=== PATIENT | female | born 1950 | race Caucasian/White ===

== ENCOUNTER 2017-07-05 10:00 | Outpatient (CLI) | payer MEDICARE, OTHER | END 2017-07-05 10:02 | LOC: RT 10:00 | PROVIDERS: ATTEND Nurse Practitioner Family | DX: I49.9 Cardiac arrhythmia, unspecified (principal); R07.89 Other chest pain | CPT/HCPCS: 93270 ==

== ENCOUNTER 2018-06-08 23:25 | Emergency (ER) | payer MEDICARE, OTHER ==
--- NOTE | 2018-06-08 23:53 | ED Physician Documentation ---
General Adult - HISTORIAN Historian: patient - HPI Stated Complaint: high blood pressure Chief Complaint: General Adult Additional Information: Took her BP at home today and it was elevated. So she kept taking it over and over. One reading was 190/100, so she took an extra dose of BP medication and came to ER. Typically takes 30 mg Lisinopril daily; took an extra 5 mg this evening. Denies CP, PAGAN, vision changes. Held breath and elevated shoulders while BP taken in ER. Radha Marquez pt and hasn't seen her in more than a year. Denies other health problems. - ROS CONST: no problems - PAST HX Past History: hypertension - SOCIAL HX Smoking History: quit greater than 1 year, cigarettes - FAMILY HX Family History: Yes (cancer) - REVIEWED ASSESSMENTS Nursing Assessment Reviewed: Yes Vitals Reviewed: Yes Progress - Progress Progress: BP consistently in decent ranges in ER, 163/73, 155/63. No other symptoms. Explained that lowering her BP too much was also risky. ED Results Lab/Radiology - Orders Orders: ED Orders Category Date Time Status UA [URINALYSIS] Routine Lab 06/08/18 Ordered General Adult Physical Exam - PHYSICAL EXAM GENERAL APPEARANCE: mild distress (anxious) EENT: eye inspection normal, ENT inspection normal, pharynx normal, no signs of dehydration NECK: normal inspection, supple RESPIRATORY: no resp distress, breath sounds normal CVS: reg rate & rhythm, heart sounds normal, no murmur BACK: normal inspection, no CVA tenderness, other (no vertebral tenderness) SKIN: warm/dry, normal color EXTREMITIES: normal range of motion (gait and stance), no evidence of injury, no edema NEURO: CN's nml as tested, motor nml, sensation nml, cognition normal Discharge Clincal Impression: Hypertension Qualifiers: Hypertension type: unspecified Qualified Code(s): I10 - Essential (primary) hypertension Referrals: Radha Marquez MD [Primary Care Provider] - 2 Days Additional Instructions: Return to the ER if you have chest pain, shortness of breath, palpitations. Follow up with Dr. Marquez soon. Condition: Good Disposition: 01 HOME, SELF-CARE Decision to Admit: NO Decision Time: 00:10
[2018-06-09 00:20] VITALS: BP 166/66
[2018-06-09 08:23] LABS: APPEARANCE,URINE CLEAR (CLEAR); COLOR,URINE YELLOW (YELLOW); OCCULT BLOOD,URINE TRACE-INTACT (NEGATIVE); UROBILINOGEN URINE 0.2 Eu (0.2-1.0)
== END 2018-06-09 00:20 | disposition home or self-care (01) ==
LOC: ED 23:25
DX: I10 Essential (primary) hypertension (principal)
CPT/HCPCS: 81002; 99283

== ENCOUNTER 2018-10-26 07:54 | Outpatient (CLI) | payer MEDICARE, OTHER ==
--- NOTE | 2018-10-26 23:55 | Diagnostic Imaging Report ---
ANAMIKA RANDHAWA [facility] [id number] [facility].[address] [id number] Report Submission Date: Oct 26, 2018 6:32:08 PM CHEMISTRY PHYSICS TEACHER Patient Study Name: GERONIMO COOPER Date: Oct 26, 2018 7:11:06 AM CHEMISTRY PHYSICS TEACHER Modality Type: US Gender: F Description: US RENAL ARTERY : 52 Institution: [facility] Physician: ANAMIKA RANDHAWA Duplex sonography of the renal arteries with color Doppler analysis Clinical history: Hematuria with hypertension Right kidney measures 9.7 x 4.4 x 4.7 cm , cortex measures the 1.2 cm . No hydronephrosis, solid and cystic renal mass. Left kidney measures 10 x 4.5 x 4.9 cm with left renal cortex measures the 1 cm. No visible left hydronephrosis . Average peak systolic velocity of the abdominal aorta is 65 cm per second Average peak systolic velocity of the right renal artery 82 cm per second with a ratio of less than 2 Average peak systolic velocity of the left renal artery is 90 cm per second with a ratio of less than 2 Impression: Normal kidneys No hemodynamically significant renal artery stenosis Electronically signed on Oct 26, 2018 6:32:08 PM CHEMISTRY PHYSICS TEACHER by: Nick CHÁVEZ
== END 2018-10-26 07:56 ==
LOC: RAD 07:54
PROVIDERS: ATTEND Nurse Practitioner Family
DX: I10 Essential (primary) hypertension (principal); R31.9 Hematuria, unspecified
CPT/HCPCS: 93998